=== PATIENT | female | born 1970 | race American Indian/Alaskan Native ===

== ENCOUNTER 2017-12-20 09:45 | Outpatient (CLI) | payer BC ==
--- NOTE | 2017-12-20 16:45 | Magnetic Resonance Report ---
BILATERAL BREAST MRI WITHOUT AND WITH CONTRAST: 12/20/17 09:45:00 CLINICAL: Left breast pain and tenderness and probably benign left nodular densities on recent mammogram. Ultrasound identified a benign intramammary lymph node COMPARISON:10/27/17 bilateral diagnostic mammogram. TECHNIQUE: Axial 1.0-mm T1 without, axial high resolution 2.0-mm T2 and axial 1.0-mm dynamic Vibrant high-resolution postcontrast T1 fat saturation sequences on a 1.5 Jammie magnet. The examination was performed with an 8 channel dedicated [place] breast coil. Post processing with CAD and subtraction was performed on an [email or web address] workstation. 19.0 cc of Multihance was injected without incident for the contrast portion of the exam. Consent was obtained prior to the administration of the contrast. FINDINGS: Right: Minimal background parenchymal enhancement. No mass or suspicious enhancement. No suspicious lymph nodes. Left: Minimal background parenchymal enhancement. No mass or suspicious enhancement. 2 contiguous oval smooth 4 mm enhancing nodules at 2 o'clock 12 cm from the nipple correlate with the mammographic and ultrasound findings. This appears to be on or 2 separate benign intramammary lymph nodes or one 9-10 mm lymph node with a bilobed shape. IMPRESSION: Benign left intramammary lymph nodes or one benign left intramammary lymph node and otherwise negative study. These findings correlate with the mammographic and sonographic findings. BI-RADS 2 - - Benign
== END 2017-12-20 09:46 | disposition home or self-care (01) ==
LOC: SPVIMAG 09:45
PROVIDERS: ATTEND Surgery
DX: R92.8 Other abnormal and inconclusive findings on diagnostic imaging of breast (principal); Z80.3 Family history of malignant neoplasm of breast
CPT/HCPCS: A9577; C8908; 77059

== ENCOUNTER 2020-05-21 08:17 | Outpatient (CLI) | payer OTHER ==
--- NOTE | 2020-05-21 09:54 | Mammography Report ---
BILATERAL DIGITAL DIAGNOSTIC MAMMOGRAM WITH CAD CONVENTIONAL, 05/21/2020 LEFT LIMITED BREAST ULTRASOUND CLINICAL INFORMATION / INDICATION: Patient presents for evaluation of an area of palpable concern in the left breast. TECHNIQUE: Digital bilateral mammographic imaging was performed. Spot compression views were obtained . Limited ultrasound was performed. This examination was interpreted with the benefit of Computer-Aid ed Detection (CAD) analysis. COMPARISON: Prior mammograms 04/16/2019 and 04/10/2018 FINDINGS: Breast Density: There are scattered areas of fibroglandular density. MAMMOGRAPHIC FINDINGS: No dominant mass, suspicious calcifications, or architectural distortion in ei ther breast. There has been no significant change compared with the prior examinations. A small benig n intramammary lymph node is seen underlying the marker denoting site of palpable concern in the post erior upper outer quadrant of the left breast. Targeted ultrasound performed for further evaluation. ULTRASOUND FINDINGS: Targeted ultrasound evaluation was performed of the area of interest. Targeted ultrasound of the area of palpable concern in the left breast 2:00 position located 9 cm from the ni pple reveals a 5 mm benign intramammary lymph node. No suspicious sonographic abnormality identified. IMPRESSION: 1. A small benign intramammary lymph node accounts for the area of palpable concern in the left breas t. No suspicious mammographic or sonographic abnormality identified. Follow up recommendation: Routine yearly BI-RADS Category 2: Benign. A "normal" or negative report should not discourage follow up or biopsy of a clinically significant f inding. A written summary of these findings will be mailed to the patient. The patient will be entered into a mammography reporting system which will generate a reminder letter for the patient's next appointmen t at the appropriate interval. According to the [employer], yearly mammograms are recommended starting at age 40 and continuing as long as a woman is in good health. Breast MRI is recommended for women with an feli roximately 20-25% or greater lifetime risk of breast cancer, including women with a strong family his tory of breast or ovarian cancer and women who have been treated for Hodgkin's disease. Signer Name: Sally Cano MD Signed: 05/21/2020 9:50 AM Workstation Name: [id number]
== END 2020-05-21 08:18 | disposition home or self-care (01) ==
LOC: SPVWC 08:17
PROVIDERS: ATTEND Surgery
DX: N64.4 Mastodynia (principal); R92.8 Other abnormal and inconclusive findings on diagnostic imaging of breast
CPT/HCPCS: 77066